=== PATIENT | male | born 1980 | race Hispanic/Latino ===

== ENCOUNTER 2022-11-16 16:04 | Emergency (ER) | payer SELFPAY ==
[2022-11-16] MEDS ORDERED: LORazepam 2 MG/ML VIAL ONE (16:16)
--- NOTE | 2022-11-16 16:30 | ER ---
Nurse's Notes [facility] Name: Delvin Richardson Age: 42 yrs Sex: Male : 1980 Arrival Date: 11/16/2022 Time: 16:04 Bed 3 Private MD: Diagnosis: Cocaine use, methamphetamine use, alcohol intoxication, altered mental status, hypertension Presentation: 11/16 16:10 Chief complaint: "Pt was dropped off by strangers from being on the side of road.". mb9 Coronavirus screen: Vaccine status: Patient reports being unvaccinated. Ebola Screen: No symptoms or risks identified at this time. Initial Sepsis Screen: Does the patient meet any 2 criteria? No. Patient's initial sepsis screen is negative. Does the patient have a suspected source of infection? No. Patient's initial sepsis screen is negative. Risk Assessment: Do you want to hurt yourself or someone else? Patient reports no desire to harm self or others. Onset of symptoms was November 16, 2022. 16:10 Method Of Arrival: Carried mb9 16:10 Acuity: ALONDRA 2 mb9 Triage Assessment: 16:12 General: Appears uncomfortable, Behavior is agitated, combative. Pain: Denies pain. mb9 Neuro: Level of Consciousness is awake, alert, Oriented to person, place. Cardiovascular: Patient's skin is warm and dry. Respiratory: Airway is patent Respiratory effort is even, unlabored, Respiratory pattern is regular, symmetrical. Derm: Skin is pink, warm \\T\\ dry. Musculoskeletal: Range of motion: intact in all extremities. Historical: - Allergies: 16:12 No Known Allergies; mb9 - PMHx: 16:12 Hypertension; nose bleed; mb9 - Immunization history:: Adult Immunizations unknown. - Social history:: Smoking status: unknown. Assessment: 16:15 Reassessment: Gabriele matthews called. Pt jumped out of bed stating , "I feel better! Take ss this out right now! I want to go!" IV removed. pt ambulated outside of ER with steady gait. Appears restless. A\\T\\O x3. Vital Signs: 16:10 BP 166 / 119; Pulse 84; Resp 14; Pulse Ox 100% on R/A; mb9 ED Course: 16:05 Patient arrived in ED. bp 16:05 Janie Crockett MD is Attending Physician. sp3 16:05 Placed in gown. Bed in low position. Call light in reach. Side rails up X 1. Client mb9 placed on continuous cardiac and pulse oximetry monitoring. NIBP monitoring applied. vehicle monitor technician on. 16:10 Inserted saline lock: 20 gauge in left antecubital area, using aseptic technique. ss 16:12 Triage completed. mb9 16:12 Arm band placed on. mb9 16:18 IV discontinued, intact, bleeding controlled, No redness/swelling at site. Pressure ss dressing applied. 16:18 No provider procedures requiring assistance completed. ss Administered Medications: 16:15 Not Given (Patient Refused): Ativan IVP 2 mg IVP once ss Outcome: 16:31 Eloped from patient exam room, after seeing physician ss 16:31 Condition: improved 16:31 Discharge instructions given to patient, family, Instructed on discharge instructions, follow up and referral plans. 16:32 Patient left the ED. Signatures: Cari Hilario, RN RN Ramón López RN RN Janie Crockett MD MD sp3 Erika Coleman RN RN mb9
--- NOTE | 2022-11-16 16:30 | EDPHYS ---
Physician Documentation [facility] Name: Delvin Richardson Age: 42 yrs Sex: Male : 1980 Arrival Date: 11/16/2022 Time: 16:04 Bed 3 Private MD: ED Physician Janie Crockett HPI: 11/16 16:24 This 42 yrs old Male presents to ER via Carried with complaints of Altered sp3 Mental Status. 16:24 42-year-old male with unknown past medical history presents to the ED dropped off by sp3 strangers at the front entrance. Patient is altered and talking in sentence fragments and appears to be confused and on substances. History, physical and ROS severely limited at this time. Patient barely acknowledges his name but does endorse alcohol, cocaine, methamphetamine. The patient complains that his mouth is very dry. Please see MDM for further evaluation and management prior to patient requesting to leave.. Historical: - Allergies: 16:12 No Known Allergies; mb9 - PMHx: 16:12 Hypertension; nose bleed; mb9 - Immunization history:: Adult Immunizations unknown. - Social history:: Smoking status: unknown. ROS: 16:26 Unable to obtain ROS due to altered mental status. sp3 Exam: 16:26 Constitutional: The patient appears See MDM. sp3 Vital Signs: 16:10 BP 166 / 119; Pulse 84; Resp 14; Pulse Ox 100% on R/A; mb9 MDM: 16:10 Patient medically screened. sp3 16:28 Data reviewed: vital signs. ED course: Physical exam limited however blood pressure was sp3 180/120 repeated numerous times. Heart rate was in the upper 90s. Patient was extremely unkept, on paved and only had shorts, socks and old tennis shoes on. Patient had multiple serial episodes of lipsmacking and then behavior of anxiety and wanting to leave. He then ripped out his ECG leads and was about to rip out his IV when a beto matthews was called and the nursing team intervened. Patient was not suicidal or homicidal and by the time he left on his own volition was saying "thank you for helping me whoever you are". He refused all interventions including blood work, IV fluids, Ativan, drug screen, counseling, any and all services from the emergency department. Before we could sign any paperwork, he was walking out the door and did not pose a danger to himself other than the drug use therefore we cannot hold him against as well. We informed him that he may return at any time.. 11/16 16:07 Order name: EKG; Complete Time: 16:08 sp3 11/16 16:07 Order name: IV Saline Lock; Complete Time: 16:14 sp3 Administered Medications: 16:15 Not Given (Patient Refused): Ativan IVP 2 mg IVP once ss Disposition Summary: 11/16/22 16:30 Eloped Disposition: after being seen by provider sp3 Reason: unknown sp3 Diagnosis - Cocaine use, methamphetamine use, alcohol intoxication, altered mental status, sp3 hypertension Signatures: Dispatcher [employer] EDMS Cari Hilario RN RN ss Janie Crockett MD MD sp3 Erika Coleman RN RN mb9 Corrections: (The following items were deleted from the chart) 16:15 16:07 EKG - Nurse/Tech ordered. sp3 ss 16:16 16:07 Labs collected and sent ordered. sp3 ss 16:16 16:07 Suicide Screening ([place]) ordered. sp3 ss 16:26 16:26 All other systems are negative, sp3 sp3
[2022-11-16 19:48] VITALS: BP 166/119; O2SAT 100
[2022-11-17] MEDS ORDERED: NA CHLORIDE 0.9% 1,000 ML ONE (02:03)
== END 2022-11-16 16:32 | disposition left against medical advice (07) ==
LOC: ER 16:04
DX: F14.90 Cocaine use, unspecified, uncomplicated (principal); F10.929 Alcohol use, unspecified with intoxication, unspecified; F15.90 Other stimulant use, unspecified, uncomplicated; I10 Essential (primary) hypertension
CPT/HCPCS: 99285